=== PATIENT | male | born 1995 | race Caucasian/White ===

== ENCOUNTER 2018-08-18 12:15 | Emergency (ER) | payer SELFPAY ==
[~2018-08-18] VITALS: Ht 154.9 cm; Wt 60.8 kg
[2018-08-18 12:25] VITALS: BP 134/74
[2018-08-18] MEDS ORDERED: ACETAMINOPHEN ES 500 MG TABLET PO ONE (13:00)
[2018-08-18] MEDS ORDERED: BACITRACIN ZINC OINT PACKET 1 EA PACKET TP ONE ×2 (13:00→13:07)
[2018-08-18] MEDS ORDERED: ACETAMINOPHEN ES 500 MG TABLET ONE (13:07)
== END 2018-08-18 13:33 | disposition home or self-care (01) ==
LOC: ER 12:22
DX: S40.012A Contusion of left shoulder, initial encounter (principal); S50.812A Abrasion of left forearm, initial encounter; Z88.6 Allergy status to analgesic agent; Z88.8 Allergy status to other drugs, medicaments and biological substances; V49.49XA Driver injured in collision with other motor vehicles in traffic accident, initial encounter; Y93.89 Activity, other specified; Y92.413 State road as the place of occurrence of the external cause; Y99.8 Other external cause status
CPT/HCPCS: 71045; 82962; 99283; A4606; Z7610